=== PATIENT | female | born 1985 | race Two or more races ===

== ENCOUNTER 2024-06-30 00:28 | Emergency (ER) | payer BC, SELFPAY ==
[2024-06-30 00:29] VITALS: BMI 29.2
[2024-06-30 00:44] VITALS: BP 141/98; PULSE 89; RESP 16; TEMP 36.9; O2SAT 99
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
== END 2024-06-30 01:45 | disposition home or self-care (01) ==
LOC: SERX 03:19
PROVIDERS: Emergency Provider Emergency Medicine; PCP Family Medicine
DX: S00.83XA Contusion of other part of head, initial encounter (principal); V43.52XA Car driver injured in collision with other type car in traffic accident, initial encounter
CPT/HCPCS: 99281